=== PATIENT | female | born 1960 | race Caucasian/White ===

== ENCOUNTER 2023-11-20 20:24 | Emergency (ER) | payer SELFPAY ==
[~2023-11-20] VITALS: Ht 170.2 cm; Wt 69.9 kg
[2023-11-20 20:34] VITALS: BP 154/80; PULSE 75; RESP 16; TEMP 97.6; O2SAT 99
[2023-11-20 21:05] VITALS: O2SAT 99
[2023-11-20] MEDS ORDERED: IBUPROFEN 600 MG TAB PO ONE (21:15)
[2023-11-20] MEDS ORDERED: BACITRACIN OINT 500 UNITS/GM PKT TP ONE (22:15)
[2023-11-20] MEDS ORDERED: LIDOCAINE MPF 1% 10 MG/ML VIAL INJ ONE (22:15)
[2023-11-20] MEDS ORDERED: NAPR-54 PO (22:40)
== END 2023-11-20 22:55 | disposition home or self-care (01) ==
LOC: MED 20:24
DX: S92.421A Displaced fracture of distal phalanx of right great toe, initial encounter for closed fracture (principal); Z79.1 Long term (current) use of non-steroidal anti-inflammatories (NSAID); W20.8XXA Other cause of strike by thrown, projected or falling object, initial encounter; Y93.89 Activity, other specified; Y92.89 Other specified places as the place of occurrence of the external cause; Y99.8 Other external cause status
CPT/HCPCS: 10060; 29515; 73660; 99283; J2001; Q0092; 10140